=== PATIENT | female | born 2005 ===

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

== ENCOUNTER 2024-05-26 15:14 | Emergency (ER) | payer OTHER, SELFPAY ==
[2024-05-26] VITALS (15 sets, daily range): BP systolic 96–110; BP diastolic 59–71; PULSE 84–105; RESP 12–16; TEMP 37.3–39.4; O2SAT 97–100
[2024-05-26] MEDS: Acetaminophen 500 MG TAB 1000 MG PO (15:47)
[2024-05-26 16:06] LABS: Bilirubin Negative (Negative); Blood Moderate (Negative); Clarity Clear (Clear); Glucose Negative (Negative); Ketones Negative (Negative); Leukocyte Esterase Negative (Negative); Nitrite Negative (Negative); Urobilinogen 0.2 mg/dL (Up to 0.2); pH 5.5 (5-8)
--- NOTE | 2024-05-26 16:18 | W.ED.GENAD ---
Discharge Plan Disposition Patient Disposition: Home Discharge Details Clinical Impression: Viral illness Primary Care Provider: Sandy Ponce ED Provider: Renetta Gutierrez Home Meds and New Rx's Prescriptions: Continued sertraline 100 mg tablet 100 mg PO DAILY Qty: 90 1RF Discharge Instructions Additional Instructions: Please follow-up with [facility] to have your strings rechecked. They may wish to look at the IUD's placement using an ultrasound. I recommend you also call your [facility] office to schedule an appointment for when you get home if you have any concerns or questions. You can always go to [facility] for reevaluation when you get back to [place]. A Monospot is pending, results should be available within the week. Continue using Tylenol ibuprofen as needed for fever and cramps. Stay well-hydrated, especially while you are having fevers, as it causes you to lose water through sweating. Return to emergency care if you develop new severe headaches, vision changes, uncontrollable vomiting, chest pain, difficulty breathing, difficulty swallowing/drooling, severe lower abdominal pain, foul-smelling vaginal discharge, or if you are very worried and need to be rechecked again immediately. Referrals: Sandy Ponce, DIRECTOR OF ACQUISITIONS [Primary Care Provider] - HPI General Date/Time Provider Initiated Documentation: 05/26/24 15:39. HPI Narrative: Antonio is a 18year old female who presents to the emergency department today for evaluation of fever with intermittent frontal and occipital headache accompanied by photophobia, fatigue, decreased appetite, congestion, and mild sore throat. She reports symptoms started a couple of days ago, fever has been up to 103. She has been treating with Tylenol ibuprofen, does not feel that headache is alleviated by treatment of fever. She does say that headache is better throughout the day but gets worse when she lays down in bed because there is a feeling of pressure. She was seen in urgent care today, advised to come to the emergency department for further evaluation because her fever spiked to 103. She did have an IUD placed 3 weeks ago, has had intermittent cramping and vaginal bleeding since then. Denies unusual vaginal discharge/foul odor, consistent lower abdominal pain, nausea/vomiting, other abdominal discomfort, change in bowel or bladder function. Also denies chest pain, shortness of breath, difficulty breathing, ear pain, vision changes, dizziness, gait disturbance. No significant past medical history. No known recent ill contacts with fevers. No significant history of migraine headaches. Physical exam reassuring. Patient is alert and oriented, no acute distress. Cranial nerves II through XII intact as tested. Moist mucous membranes, normal oropharynx, no exudate or tonsillar hypertrophy, uvula midline.. Easy work of breathing, lung sounds clear bilaterally. Normal heart sounds. Abdomen is soft, nondistended, nontender to palpation. Normal Romberg, finger finger, finger-nose, tandem gait, heel toe walk, heel golden, rapid alternating movements. PERRL, EOMs intact. History and presentation most consistent with febrile viral illness such as COVID-19 or Hemal-Faulkner with migraine headache. As patient and mother are concerned about endometritis, baseline labs drawn. However, I do have a very low suspicion based on lack of vaginal discharge, consistent abdominal pain, or tenderness with palpation of suprapubic area/lower abdomen. No red flags at this time concerning for meningitis or other serious systemic illness requiring emergent diagnostic imaging or invasive procedures such as lumbar puncture. I independently interpreted the following tests: CBC, BMP, lipase, hCG, UA all reassuring. Only blood noted in UA, consistent with current menstrual bleeding. While in the emergency department, Antonio received IV Toradol, Reglan, Benadryl with full resolution of headache. She reports she is feeling significantly better. Abdomen remains nontender to palpation. Likely viral illness, though Monospot is still pending. Reviewed discharge instructions with patient, including symptomatic management and red flags indicating need for return to emergency care. Mother and patient voice agreement with plan of care. Related Data Home Medications ?Medication ?Instructions ?Recorded ?Confirmed sertraline 100 mg tablet 100 mg PO DAILY #90 tabs 04/16/24 05/26/24 Previous Rx's ?Medication ?Instructions ?Recorded sertraline 100 mg tablet 100 mg PO DAILY #90 tabs 04/16/24 Allergies Allergy/AdvReac Type Severity Reaction Status Date / Time No Known Allergies Allergy Verified 05/26/24 15:32 General Stated Complaint: GenMedical LETICIA: 3 Review of Systems Narrative: HPI Exam Const General: cooperative, healthy appearing, comfortable, no acute distress, well developed and well groomed Nutritional Appearance: average body habitus Orientation: alert and oriented x3 HENMT Head: normal to inspection and normocephalic General nose exam: external nose normal Face and sinus: normal facial exam Mouth: oral mucosae normal, lip normal, tongue normal, oropharynx normal and moist mucous membranes Throat: posterior oropharynx normal, tonsils normal and uvula midline Eyes General: appearance normal, both eyes and all related structures Pupils: PERRL EOM: EOM intact bilaterally Neck Neck: normal visual inspection, full ROM, no meningeal signs and trachea midline Resp Effort & Inspection: normal respiratory effort and able to speak in complete sentences Auscultation: clear to auscultation bilaterally Cardio Rate: regular rate Rhythm: regular rhythm GI Inspection: normal to inspection and non-distended Palpation: soft, not firm, no guarding, not rigid and nontender Auscultation: normal bowel sounds Skin General skin exam: no rashes or lesions noted Neuro General: patient alert, patient oriented x3, gait normal, tone normal, moves all extremities, no meningeal signs, no focal motor deficits and CN's II-XI intact bilaterally Cranial Nerves: CN's II-XI intact bilaterally, PERRL, EOM intact bilaterally, no nystagmus and facial strength normal Cognition: normal cognition Speech: speech normal Gait: normal gait Motor: muscle tone normal throughout and strength 5/5 throughout Sensory Exam: no sensory deficits noted Coordination: [id number] test normal, [id number] test normal, Romberg test normal, tandem gait normal and rapid alternating movement UE normal Course Vital Signs Vital signs: Vital Signs Temperature 39.4 C H 05/26/24 15:30 Pulse 105 H 05/26/24 15:30 Respiratory Rate 12 05/26/24 15:30 Blood Pressure 110/71 05/26/24 15:30 Pulse Oximetry 99 05/26/24 15:30 Temperature 39.4 C H 05/26/24 15:30 Temperature Source Oral 05/26/24 15:30 Pulse 105 H 05/26/24 15:30 Respiratory Rate 12 05/26/24 15:30 Respiratory Effort Normal, Non-Labored 05/26/24 15:34 Blood Pressure 110/71 05/26/24 15:30 Blood Pressure Position Sitting 05/26/24 15:30 Pulse Oximetry 99 05/26/24 15:30 Oxygen Delivery Method Room Air 05/26/24 15:30 Oxygen Flow Rate 0 05/26/24 15:30 Pain Level 0 05/26/24 15:30 Lab/Test Results Lab/Test Results: Laboratory Tests Range/Units 05/26/24 15:44 Urine Color (Yellow) Yellow Urine Clarity (Clear) Clear Urine pH (5-8) 5.5 Ur Specific [place] (1.005-1.025) 1.020 Urine Protein (Neg-Trace) mg/dL Trace Urine Ketones (Negative) mg/dL Negative Urine Blood (Negative) Moderate H Urine Nitrite (Negative) Negative Urine Bilirubin (Negative) Negative Urine Urobilinogen (Up to 0.2) mg/dL 0.2 Ur Leukocyte Esterase (Negative) Negative Urine Glucose (Negative) mg/dL Negative POC- Test(urine) Negative Medical Decision Making Quality:SDOH Health Related Social Needs: No Data to Display PFSH All Active Problems (Updated 05/26/24 @ 18:27 by Renetta Boyle) Viral illness (Acute) Counseling for initiation of control method (Acute) Fatigue (Acute) Anxiety (Chronic) Family History Mother Healthy adult Father Healthy adult Paternal Grandfather Heart disease Social History Smoking/Tobacco Use Status: Never Smoking risk assessment performed?: Yes Alcohol Intake: never Drug use: Never Substance use type: does not use Housing: other Education Level: college Details: [employer] freshman Do you feel safe at home: Yes Do you feel safe in your relationship?: Yes Female Reproductive History Menstrual Age of Menarche: 10 Duration of menses: 6-7 days PAWSS Have you Been Recently Intoxicated or Drunk Within the Last 30 days?: No Have you Ever Experienced Previous Episodes of Alcohol Withdrawal?: No Have you ever Experienced Withdrawal Seizures?: No Have you ever Experienced Delirium Tremens(DT)s?: No Have you ever undergone Alcohol Rehabilitation Treatment (i.e, inpt ot outpatient treatment programs)?: No Have you ever Experienced Blackouts?: No Have you ever Combined Alcohol with other Downers within the last 90 days?: No Have you ever Combined Alcohol with any other Substance of Abuse during the last 90 days?: No Positive Blood Alcohol level on Presentation? [PCS.BAL]: No Evidence of Increased Autonomic Activity (i.e. HR>120, tremor, sweating, agitation, nausea)?: No Result: 0
[2024-05-26 16:30] LABS: Bacteria Negative HPF (Negative); C & S Indicated? No; Crystals Negative HPF (Negative); Epithelial Cells Few HPF (Negative); Mucus Moderate (Negative); WBC 0-2 HPF (0-5)
[2024-05-26 17:22] LABS: Abs Immature Grans 0.04 10^3/uL (0.0-0.06); Absolute Basophil Count 0.02 10^3/uL (0.0-0.2); Absolute Lymphocyte Count 1.27 10^3/uL (1.2-3.4); Absolute Monocyte Count 0.98 10^3/uL (0.1-0.8); Absolute Neutrophil Count 6.66 10^3/uL (1.2-6.7); Basophils % 0.2 %; HCT 39.1 % (36.0-46.0); HGB 13.1 g/dL (11.2-15.7); Immature Grans % 0.4 %; Lymphocytes % 14.2 %; MCH 31.3 pg (27.0-33.0); MCHC 33.5 % (32.0-36.0); MCV 94 fL (80-95); MPV 10.9 fL (8.0-11.0); Monocytes % 10.9 %; Neutrophils % 74.3 %; Platelet Count 174 10^3/uL (130-400); RBC 4.18 10^6/uL (3.93-5.22); RDW 12.6 % (11.7-14.6); RDW-SD 43.4 fL; WBC 8.97 10^3/uL (4.4-10.8)
[2024-05-26] MEDS: Ketorolac 15 MG/ML VIAL IVP (17:26)
[2024-05-26] MEDS: Metoclopramide 10 MG/2 ML VIAL IVP (17:27)
[2024-05-26] MEDS: diphenhydrAMINE 50 MG/ML VIAL 25 MG IVP (17:27)
[2024-05-26 17:32] LABS: Anion Gap 11.3 mmol/L (3-11); BUN 10 mg/dL (7-18); CO2 25.7 mmol/L (21.0-32.0); CREATININE 0.8 mg/dL (0.55-1.02); Chloride 100 mmol/L (98-107); Estimated GFR 108.78 (mL/min/1.73m2); Glucose 92 mg/dL (74-106); Lipase 31 U/L (<78); Potassium 3.8 mmol/L (3.5-5.1); Sodium 137 mmol/L (136-145)
[2024-05-26 17:37] LABS: Calcium 8.7 mg/dL (8.5-10.1)
[2024-05-26 18:36] LABS: Mono Screening Negative (Negative)
[2024-05-27 20:57] LABS: Lab Add On Test DONE
== END 2024-05-26 18:40 | disposition home or self-care (01) ==
PROVIDERS: Emergency Medicine; Emergency Provider Nurse Practitioner Family; PCP Nurse Practitioner Family
DX: R50.9 Fever, unspecified (principal); R51.9 Headache, unspecified; R07.0 Pain in throat; B34.9 Viral infection, unspecified
CPT/HCPCS: 36415; 80048; 81025; 83690; 96374; 96375; 99284; 81003; 81015; 85025; 86308; J1200; J1885; J2765

== ENCOUNTER 2024-05-30 12:07 | Outpatient (REF) | payer OTHER, SELFPAY | END 2024-05-30 12:08 | disposition home or self-care (01) | LOC: LBO 12:07 | PROVIDERS: PCP Nurse Practitioner Family; Referring Provider Pediatrics; Visit Provider Pediatrics | DX: R50.9 Fever, unspecified (principal); J02.9 Acute pharyngitis, unspecified; J03.90 Acute tonsillitis, unspecified; R09.81 Nasal congestion | CPT/HCPCS: 87070 ==

== ENCOUNTER 2025-01-30 10:58 | Outpatient (REF) | payer OTHER, SELFPAY ==
[2025-01-31 12:15] LABS: Chlamydia Result Negative (Negative); GC Result Negative (Negative)
== END 2025-01-30 10:59 | disposition home or self-care (01) ==
LOC: LBN 10:58
PROVIDERS: PCP Nurse Practitioner Family; Visit Provider Nurse Practitioner Pediatrics
DX: Z11.3 Encounter for screening for infections with a predominantly sexual mode of transmission (principal)
CPT/HCPCS: 87491; 87591

== ENCOUNTER 2025-01-30 11:18 | Outpatient (CLI) | payer OTHER, SELFPAY ==
[2025-01-30 22:41] LABS: HIV-1/2 Ag & Ab Screen Negative (Negative)
[2025-01-31 10:40] LABS: Syphilis Serology (RPR) Negative (Negative)
== END 2025-01-30 11:19 | disposition home or self-care (01) ==
LOC: LBO 11:18
PROVIDERS: PCP Nurse Practitioner Family; Visit Provider Nurse Practitioner Pediatrics
DX: Z11.3 Encounter for screening for infections with a predominantly sexual mode of transmission (principal)
CPT/HCPCS: 36415; 87389; 86592